=== PATIENT | male | born 1995 | race Caucasian/White ===

== ENCOUNTER 2021-06-22 13:04 | Emergency (ER) | payer SELFPAY ==
[~2021-06-22] VITALS: Ht 167.6 cm; Wt 68.0 kg
[2021-06-22 13:28] VITALS: BP_SYST 150
--- NOTE | 2021-06-22 14:33 | NUR ---
Patient to ER bed 05 to gown for evaluation. Side rails up.
--- NOTE | 2021-06-22 14:40 | NUR ---
pt. bib ACLS with palpitations post drug use, states took ecstasy yesterday and methamphetamine this morning and then called 911 when felt heart palpitations, has hx. of anxiety, has been doing ecstacy for about 6 years and just started meth about 1 month ago. At this time doesn't feel palpitations but feels "my heart is strained". EKG done on initial arrival.
[2021-06-22] MEDS ORDERED: NACL 0.9% 1,000 ML IV ONE ×3 (15:15→17:15)
--- NOTE | 2021-06-22 15:42 | NUR ---
chest xray being done in room
[2021-06-22 15:49] LABS: BASOPHILS % (AUTO) 0.4 % (0.0-2.0); EOSINOPHILS % (AUTO) 0.4 % (0.0-4.0); HEMATOCRIT 43.9 % (36-54); HEMOGLOBIN 15.4 g/dL (14.0-18.0); LYMPHOCYTES # (AUTO) 1.2 K/uL (1.0-5.5); LYMPHOCYTES % (AUTO) 12.7 % (20.5-51.5); MEAN CORPUSCULAR HEMOGLOBIN 31 pg (27-31); MEAN CORPUSCULAR HGB CONC 35 % (32-36); MEAN CORPUSCULAR VOLUME 88 fL (79.0-98.0); MONOCYTES # (AUTO) 0.8 K/uL (0.0-1.0); MONOCYTES % (AUTO) 8.3 % (1.7-9.3); NEUTROPHILS # (AUTO) 7.4 K/uL (1.8-7.7); NEUTROPHILS % (AUTO) 78.2 % (40.0-70.0); PLATELET COUNT (AUTO) 269 K/uL (130-430); RED BLOOD CELL COUNT(AUTO) 5.01 MIL/uL (4.2-6.2); RED CELL DISTRIBUTION WIDTH 12.6 % (9.0-15.0); WHITE BLOOD COUNT (AUTO) 9.5 K/uL (4.8-10.8)
--- NOTE | 2021-06-22 15:58 | NUR ---
LAWRENCE Worthington at bedside examining patient.
[2021-06-22 16:05] LABS: CALCIUM 9.1 mg/dL (8.4-11.0); CREATININE 0.9 mg/dL (0.55-1.30); POTASSIUM 3.3 mmol/L (3.5-5.1)
[2021-06-22 16:10] LABS: TOTAL BILIRUBIN 0.9 mg/dL (0.0-1.0)
[2021-06-22] MEDS ORDERED: LORazepam 2 MG/ML VIAL IVP ONE (16:15)
[2021-06-22] MEDS ORDERED: POTASSIUM CHLORIDE 20 MEQ TAB.PRT.SR PO ONE (18:00)
[2021-06-22 18:29] VITALS: BP_SYST 132
--- NOTE | 2021-06-22 18:31 | NUR ---
Patient given written and verbal discharge instructions and verbalizes understanding. ER Dr. Jiménez discussed with patient the results and treatment provided. Patient in stable condition. ID arm band removed. IV catheter removed intact and dressing applied, no active bleeding. Patient educated on pain management and to follow up with PMD. Pain Scale 0. Opportunity for questions provided and answered. Medication side effect fact sheet provided.
== END 2021-06-22 18:29 | disposition home or self-care (01) ==
LOC: SED 13:04
DX: F15.988 Other stimulant use, unspecified with other stimulant-induced disorder (principal); R00.2 Palpitations; E87.6 Hypokalemia
CPT/HCPCS: 36415; 71045; 80053; 83880; 84484; 85025; 93005; 96361; 96374; 99285; J2060; J7030